=== PATIENT | female | born 1940 ===

== ENCOUNTER 2017-12-03 16:26 | Emergency (ER) | payer OTHER ==
[~2017-12-03] VITALS: Ht 160 cm; Wt 95.3 kg
[~2017-12-03 16:26] MED LIST: GLUCOTROL10 MG PO; HUMULIN R500 U/ML IJ; METFORMIN HYDRO25 GM MC; SYNTHROID50 MCG PO; VASOTEC2.5 MG PO
[2017-12-03] MEDS ORDERED: KEPPRA500 MG (16:37)
[2017-12-03] MEDS ORDERED: VASOTEC20 M1 (16:37)
[2017-12-03] MEDS ORDERED: SYNTHROID137 MCG (16:38)
[2017-12-03] MEDS ORDERED: PRISTIQ ER100 MG (16:38)
[2017-12-03] MEDS ORDERED: PRAVACHOL (16:38)
[2017-12-03] MEDS ORDERED: HUMALOG MI100 UNIT/2 (16:38)
[2017-12-03] MEDS ORDERED: ARTHRITIS PAIN650 M2 (16:39)
[2017-12-03] MEDS ORDERED: SINGULAIR 10MG10 MG (16:41)
[2017-12-03] MEDS ORDERED: EXCELON (16:41)
[2017-12-03] MEDS ORDERED: RISPERDAL1 MG (16:42)
== END 2017-12-03 21:13 | disposition home or self-care (01) ==
LOC: ER 16:26
DX: R47.81 Slurred speech (principal); G81.91 Hemiplegia, unspecified affecting right dominant side; F02.80 Dementia in other diseases classified elsewhere, unspecified severity, without behavioral disturbance, psychotic disturbance, mood disturbance, and anxiety; T43.595A Adverse effect of other antipsychotics and neuroleptics, initial encounter; Y92.89 Other specified places as the place of occurrence of the external cause

== ENCOUNTER 2018-11-06 13:08 | Emergency (ER) | payer OTHER ==
[~2018-11-06] VITALS: Ht 160 cm; Wt 97.5 kg
[~2018-11-06 13:08] MED LIST changes: +ARTHRITIS PAIN650 M2; +EXCELON; +HUMALOG MI100 UNIT/2; +KEPPRA500 MG; +PRAVACHOL; +PRISTIQ ER100 MG; +RISPERDAL1 MG; +SINGULAIR 10MG10 MG; +SYNTHROID137 MCG; +VASOTEC20 M1
[2018-11-06] MEDS ORDERED: SYNTHROID137 MCG (14:33)
[2018-11-06] MEDS ORDERED: VASOTEC20 M1 (14:33)
[2018-11-06] MEDS ORDERED: DESVENLAFAXINE100 MG (14:34)
[2018-11-06] MEDS ORDERED: PRAVASTATIN SOD20 MG (14:34)
[2018-11-06] MEDS ORDERED: ASPIR 8181 MG (14:34)
[2018-11-06] MEDS ORDERED: LEVETIRACETAM250 MG (14:35)
[2018-11-06] MEDS ORDERED: CALCIUM 600 +1 EACH (14:35)
[2018-11-06] MEDS ORDERED: MAGNESIUM400 M1 (14:35)
[2018-11-06] MEDS ORDERED: OMEGA 3-6-9 CO400 MG (14:36)
[2018-11-06] MEDS ORDERED: HUMALOG MI100 UNIT/2 (14:36)
== END 2018-11-06 23:41 | disposition home or self-care (01) ==
LOC: ER 13:08
DX: R11.2 Nausea with vomiting, unspecified (principal); E83.51 Hypocalcemia

== ENCOUNTER 2019-04-25 14:22 | Outpatient (CLI) | payer OTHER ==
[~2019-04-25 14:22] MED LIST changes: +ASPIR 8181 MG; +CALCIUM 600 +1 EACH; +DESVENLAFAXINE100 MG; +LEVETIRACETAM250 MG; +MAGNESIUM400 M1; +OMEGA 3-6-9 CO400 MG; +PRAVASTATIN SOD20 MG
== END 2019-04-25 15:31 | disposition home or self-care (01) ==
LOC: NUCLEAR 14:22
DX: I83.10 Varicose veins of unspecified lower extremity with inflammation (principal); I73.9 Peripheral vascular disease, unspecified